=== PATIENT | male | born 1990 | race Caucasian/White ===

== ENCOUNTER 2023-01-04 17:32 | Emergency (ER) | payer SELFPAY ==
[2023-01-04 17:41] VITALS: BP 132/89; PULSE 125; RESP 16; TEMP 36.7; O2SAT 97; BMI 21.5
--- NOTE | 2023-01-04 18:03 | W.ED.GENADLT ---
HPI - General Adult General: Chief complaint: General Medical Stated complaint: physical Time Seen by Provider: 01/04/23 17:45 History of Present Illness: 32-year-old male patient was at a court hearing for child custody today and got visitation. Patient was requested by the court to be cleared of illness prior to visitation with the children. Patient reports that he just got overheated because air conditioning was not working at the court and became faint. Patient did not pass out but had to sit down and rest for little bit and get water to drink. Patient denies any symptoms of illness. Patient reports no chronic medical problems. Associated symptoms: Reports malaise; Deny chest pain, dyspnea, headache(s), nausea or rash Review of Systems General: Reports: 10 or more systems reviewed and unremarkable except in HPI and below Const: Reports: chills and malaise; Denies: fever(s) or fatigue Eyes: Denies: change in vision ENMT: Denies: throat pain or nasal discharge Card: Denies: chest pain Resp: Denies: dyspnea GI: Denies: nausea : Denies: difficulty urinating Musc: Denies: neck pain Skin/Breast: Denies: rash Neuro: Denies: headache(s) Psych: Denies: anxiety Endo: Denies: polyuria PFS ED PFSH: Medical History (Updated 01/04/23 @ 18:57 by NICA Lomas) Psychiatric care Physical Exam Const: COMMON NORMALS: alert HENMT: COMMON NORMALS: normocephalic HEAD & SCALP: normocephalic MOUTH: Normal oral and palatal mucosa present Neck/C-Spine: COMMON NORMALS: full ROM Lymph: LYMPHATIC: No lymphadenopathy Chest: COMMONS NORMALS: normal palpation of entire chest wall Resp: COMMON NORMALS: normal respiratory effort and clear to auscultation bilaterally AUSCULTATION: clear to auscultation bilaterally Cardio: COMMON NORMALS: regular rhythm RATE: tachycardic RHYTHM: regular rhythm GI: COMMON NORMALS: Soft to palpation and non-tender PALPATION: Yes Soft to palpation : COMMON NORMALS: Yes no CVA tenderness BLADDER/KIDNEY EXAM: Yes no CVA tenderness Back/Pelvis: COMMON NORMALS: no CVA tenderness and thoracic and lumbar spine normal to inspection Extremity: COMMON NORMALS: full ROM Neuro: SENSORIUM/ORIENTATION: Yes alert Skin: COMMON NORMALS: turgor normal GENERAL SKIN EXAM: turgor normal Course Vital Signs: Vital signs: Vital Signs Temperature 98.1 F 01/04/23 17:41 Pulse Rate 125 H 01/04/23 17:41 Respiratory Rate 16 01/04/23 17:41 Blood Pressure 132/89 01/04/23 17:41 Pulse Oximetry 100 01/04/23 18:22 Oxygen Delivery Me thod Room Air 01/04/23 18:22 MDM - General Adult Medical Decision Making 32-year-old male patient comes in today to be evaluated for illness prior to visitation with his children. Patient reports he became overheated and family court today and they wanted him to be seen prior to visiting with his children. On exam respirations are even lungs are clear to auscultation. Posterior pharynx is pink and moist. Skin is warm and dry. Vital signs are normal except for some mild elevation in pulse at 125. Patient states that he was just hot because the air conditioning was not on in the court and felt faint. Differential diagnosis includes viral syndrome, dehydration, heat exhaustion. Evaluation was unremarkable except for some mild tachycardia. Patient did seem nervous on exam. He denied use of drugs or alcohol. COVID-19 and influenza test was negative. I believe patient probably was overheated and had not eaten or drinking anything this morning to which caused his symptoms. Patient was cleared to visit with his children and follow-up as needed. Patient reported understanding and agreed to plan. Lab Data Laboratory Results Influenza Type A Ag negative (Negative) 01/04/23 18:15 Influenza Type B Ag negative (Negative) 01/04/23 18:15 SARS-CoV-2 Ag (Rapid) negative (Negative) 01/04/23 18:15 Discharge Plan Discharge Patient Disposition: Home Clinical Impression: Heat exhaustion, unspecified Qualifiers: Encounter type: initial encounter Qualified Code(s): T67.5XXA - Heat exhaustion, unspecified, initial encounter Condition: Stable Discharge Orders: Discharge ED (Routine); Ordered 01/04/23 Ordered By: Hai Buck Discharge Diet: Usual diet Discharge Activity: Increase activity as tolerated Patient Instructions: Heat Exhaustion (ED) Activity Restrictions/Additional Instructions: Drink plenty of water and fluids. Follow-up with primary care as needed. Return to ED for new concerns. Stand Alone Forms: Work/School Release Coding Level of Care Code ED Carry All Driver for Chg Fwd
[2023-01-04 18:22] VITALS: O2SAT 100
[2023-01-04 18:43] LABS: SARS Covid-2 Antigen negative (Negative)
[2023-01-04 18:44] LABS: Influenza A by IFA negative (Negative); Influenza B by IFA negative (Negative)
[2023-01-04 19:01] VITALS: RESP 16
== END 2023-01-04 19:01 | disposition home or self-care (01) ==
PROVIDERS: Emergency Provider Nurse Practitioner Family
DX: T67.5XXA Heat exhaustion, unspecified, initial encounter (principal); Z20.822 Contact with and (suspected) exposure to COVID-19; X30.XXXA Exposure to excessive natural heat, initial encounter
CPT/HCPCS: 87426; 87804; 99283